=== PATIENT | male | born 1965 | race Caucasian/White ===

== ENCOUNTER 2020-10-23 14:08 | Emergency (ER) | payer OTHER, SELFPAY ==
[2020-10-23 14:09] VITALS: BP 153/103; PULSE 87; RESP 16; TEMP 36.8; O2SAT 99; BMI 22.6
--- NOTE | 2020-10-23 14:29 | EX.ED.DYSGE1 ---
HPI History of Present Illness Chief Complaint: Fall Informant: patient Narrative Narrative: 55-year-old male states that he tripped fell striking his head against a tree. He notes lacerations. He notes that his neck is sore. No loss of consciousness. No vomiting. Unknown last tetanus. [facility] Medical History (Updated 10/23/20 @ 15:[address] Byron Sanches, DO) Anxiety Detached retina, right History of cataract Home Medications aspirin 81 mg PO DAILY 10/23/20 [History Last Taken Unknown] Allergy/AdvReac Type Severity Reaction Status Date / Time No Known Allergies Allergy Verified 10/23/20 14:11 Surgical History (Updated 10/23/20 @ 15:20 by Nuris Driscoll) History of inguinal hernia repair S/P appy Social History Smoking Status: Smoker, status unknown ROS ROS ED Constitutional Constitutional ED: Denies chills or weight loss Eyes Eyes: Denies change in vision or diplopia ENT ENT ED: Denies ear pain, rhinorrhea or sore throat Cardiovascular Cardiovascular: Denies chest pain, orthopnea, palpitations or racing heartbeat Respiratory/Chest Respiratory/Chest: Denies cough, dyspnea or orthopnea Gastrointestinal Gastrointestinal: Denies abdominal pain, diarrhea, nausea or vomiting Genitourinary Genitourinary ED: Denies dysuria, hematuria or urinary frequency Musculoskeletal Musculoskeletal: Reports neck pain; Denies arthralgias or myalgias Integumentary Reports Abrasions and other Details: Left facial laceration ; Denies abscess or rash Neurologic Neurologic: Reports headache(s); Denies weakness Psychiatric Psychiatric: Denies anxiety, depression, suicidal ideation or suicidal thoughts Endocrine Endocrinology: Denies polydipsia, polyphagia or polyuria Allergic/Immunologic Allergic/Immunologic ED: Denies mouth swelling, tongue swelling or urticaria EXAM Physical Exam Const Vital Signs: 10/23/20 14:09 Temperature 98.3 F Temperature Source Temporal Pulse Rate 87 Respiratory Rate 16 Blood Pressure 153/103 H Blood Pressure Mean 119 Pulse Ox 99 Oxygen Delivery Method Room Air Positive well nourished and well developed General Appearance ED: well developed HEENT Reports normocephalic, head/scalp atraumatic and moist mucous membranes HEENT Narrative: There are superficial abrasions to the forehead and scalp. There is a 6 cm linear laceration to the left cheek. No malocclusion. No dental trauma. No nasal trauma. trauma Eyes PERRL and EOMs intact bilaterally Neck no lymphadenopathy, supple and no JVD Neck Narrative: Patient notes soreness with range of motion Resp normal respiratory effort and clear to auscultation bilaterally Cardio regular rate, regular rhythm and no murmurs GI normal to inspection, nondistended, normoactive bowel sounds and non-tender Palpation: soft Back/Spine no CVA tenderness and normal ROM Extremity normal to inspection General Extremety ED: Negative for edema General Extremity: Negative for edema Neuro oriented x3 and CN's II-XII intact bilaterally Sensorium / Orientation: alert Motor Exam: strength 5/5 throughout Psych mental status grossly normal Mood & Affect: Negative for depressed or tearful Skin no rashes or lesions noted and no wounds MDM MDM MDM Narrative Medical decision making narrative: Patient has declined CT imaging. The wound was locally anesthetized using let and then 1% lidocaine to ensure adequate anesthesia. He was washed with Shur-Clens and explored. A total of 6 simple interrupted 5-0 Ethilon sutures were used to close the wound. Wound care discussed with patient. Recommend stitches be removed in 7 days. Head injury precautions given Discharge Plan Triage Chief Complaint: Fall ED Provider: Byron Sanches Dx/Rx/DC Orders Clinical Impression: Laceration of face, Abrasion of forehead, Acute cervical myofascial strain Instructions: ED Head Injury (Adult), ED Laceration, Face: Stitches or Tape Prescriptions: No Action aspirin 81 mg Tablet,Chewable 81 mg PO DAILY RF: 0 Primary Care Provider: Howard Shaver Referrals: Howard Shaver, [Primary Care Provider] - 7 Days for suture removal Disposition Disposition: Home, self care
[2020-10-23] MEDS: Lidocaine/Epi/Tetracaine 50 ML 1 APPLIC TOPICAL (14:45)
[2020-10-23] MEDS: oxyCODONE 5 MG Tablet 10 MG PO (15:20)
[2020-10-23] MEDS: Diphth,Pertuss(Acell),Tet Vac 0.5 ML Vial IM (15:20)
[2020-10-23] MEDS: Lidocaine 1% (20 ml mdv) 20 ML Vial INFILT (15:22)
[2020-10-23 15:52] VITALS: BP 127/66; PULSE 71; RESP 16; O2SAT 97
== END 2020-10-23 15:54 | disposition home or self-care (01) ==
PROVIDERS: Emergency Provider Emergency Medicine; PCP Family Medicine
DX: S01.412A Laceration without foreign body of left cheek and temporomandibular area, initial encounter (principal); S16.1XXA Strain of muscle, fascia and tendon at neck level, initial encounter; S00.81XA Abrasion of other part of head, initial encounter; S00.01XA Abrasion of scalp, initial encounter; W01.198A Fall on same level from slipping, tripping and stumbling with subsequent striking against other object, initial encounter; Y93.89 Activity, other specified; Y92.89 Other specified places as the place of occurrence of the external cause; Y99.8 Other external cause status
CPT/HCPCS: 12014; 90471; 90715; 99283